=== PATIENT | male | born 1990 | race Caucasian/White ===

== ENCOUNTER → 2021-04-16 11:47 | Outpatient (REF) | payer OTHER, SELFPAY ==
--- NOTE | 2021-04-16 11:57 | ECG_ITS ---
Test Reason : QT PROLONGNATION Blood Pressure : / mmHG Vent. Rate : 076 BPM Atrial Rate : 076 BPM P-R Int : 138 ms QRS Dur : 090 ms QT Int : 422 ms P-R-T Axes : 044 015 029 degrees QTc Int : 474 ms Normal sinus rhythm Normal ECG No previous ECGs available Referred By: Uzma Robin Electronically Signed By:ABIOLA KENNEDY MD
== END ==
LOC: HO.CARD 11:47
PROVIDERS: Visit Provider Family Medicine
DX: Z79.891 Long term (current) use of opiate analgesic (principal)
CPT/HCPCS: 93005